=== PATIENT | male | born 1955 | race African-American/Black ===

== ENCOUNTER 2018-04-25 12:40 | Observation (INO) | payer BC ==
--- OUTSIDE RECORDS SUMMARY | 2018-04-25 13:00 | XMS REPORT ---
:1955 External Reference #:[id number] Author Organization [facility] Address [address] [place] [address] Phone [phone] Care Team Providers Name Role Phone Bill Elizabeth MD Primary Care Physician Unavailable Payers Type Date Identification Numbers Payment Provider Subscriber Commercial Policy Number: [id number] [employer] Dani Burris PayID: [id number] [address] [address] [place] [address] Problems Description No Information Family History Date Family Member(s) Problem(s) Comments General Heart Disease General Arthritis Social History Type Date Description Comments ETOH Use Denies alcohol use Smoking Patient has never smoked Exercise Type/Frequency Exercises rarely Allergies, Adverse Reactions, Alerts Date Description Reaction Status Severity Comments 04/12/2018 NKDA active Medications Medication Date Status Form Strength Qnty SIG Indications Ordering Provider Meloxicam Active Tablets 15mg 1 by Unknown 00 mouth every day Multi For Him Active Tablets daily Unknown 50+ 00 Glucosamine Active Capsules 500mg Unknown 00 Vitamin B Active Tablets 1 by Unknown Complex 00 mouth every day Hydrocodone-Javier Active Tablets 5-325mg 1 or 2 Unknown taminophen 00 tabs by mouth every 6-8 hours as needed for pain Vital Signs Date Vital Result Comment 04/12/2018 Height 74 inches 6'2" Weight 163.00 lb Heart Rate 52 /min BP Systolic Sitting 112 mmHg BP Diastolic Sitting 60 mmHg Respiratory Rate 14 /min Pain Level 3 BMI (Body Mass Index) 20.9 kg/m2 Results Description No Information Procedures Description No Information Plan of Care No Information Available
[2018-04-25] MEDS ORDERED: NS 0.9% 1000 ML* 2,000 ML IV ONE (13:30)
[2018-04-25 13:58] LABS: ABS Basophils 0 10^3/ul (0-0.2); ABS Eosinophils 0.2 10^3/ul (0-0.6); ABS Monocytes 0.4 10^3/ul (0-0.8); ABS Neutrophils 2.9 10^3/ul (1.5-7.7); ABS Nucleated RBC 0 10^3/ul; Eosinophil % 3.8 % (0-6); Hematocrit 43 % (42-52); Hemoglobin 14.6 g/dl (14.0-18.0); Lymphocyte % 22.6 % (25-47); Mean Corpuscular HGB Conc 34 g/dl (31-36); Mean Corpuscular Hemoglobin 30 pg (27-31); Mean Corpuscular Volume 89 fL (80-94); Mean Platelet Volume 10.1 um3 (7.4-10.4); Nucleated Red Blood Cells % 0.1; Platelet Count 210 10^3/ul (150-450); Red Blood Count 4.84 10^6/ul (4.00-5.40); Red Cell Distribution Width 15 % (10.5-15); White Blood Count 4.6 10^3/ul (3.5-10.8)
[2018-04-25 14:06] LABS: INR 0.92 (0.77-1.02)
[2018-04-25 14:20] LABS: EGFR Non-African American 116.2 (>60)
--- NOTE | 2018-04-25 14:26 | RAD ---
HISTORY: TACHYCARDIA/SOB COMPARISONS: July 24, 2017 VIEWS: 1: frontal portable view of the chest at 2:12 PM FINDINGS: LINES AND TUBES: None. CARDIOMEDIASTINAL SILHOUETTE: The cardiomediastinal silhouette is normal for portable technique. PLEURA: The costophrenic angles are sharp. No pleural abnormalities are noted. LUNG PARENCHYMA: The lungs are clear. ABDOMEN: The upper abdomen is clear. There is no subphrenic gas. BONES AND SOFT TISSUES: No bone or soft tissue abnormalities are noted. IMPRESSION: NO ACTIVE CARDIOPULMONARY DISEASE.
[2018-04-25] MEDS ORDERED: Digoxin IV* 0.5 MG/2 ML AMP (0.25 MG/ML) IV SLOW PU ONE (15:38)
[2018-04-25 15:57] LABS: Urine Appearance Cloudy; Urine Blood Negative (Negative); Urine Ketones Negative (Negative); Urine Protein Negative (Negative); Urine Specific Gravity 1.015 (1.010-1.030); Urine Urobilinogen Negative (Negative)
[2018-04-25] MEDS ORDERED: Apixaban* 5 MG TAB PO ONE (16:28)
[2018-04-25] MEDS ORDERED: Ondansetron 40 MG VIAL* 2 MG/ML 20 ML VIAL IV PRN (16:36)
[2018-04-25] MEDS ORDERED: Acetaminophen TAB* 325 MG PO PRN (16:36)
[2018-04-25] MEDS ORDERED: NS 0.9% 1000 ML* 1,000 ML IV SCH (16:45)
--- NOTE | 2018-04-25 18:37 | ED ---
Jaquelin Bryant Jade, scribed for Sigifredo Ferro MD on 04/25/18 at 1329 . HPI Cardiac - HPI Summary HPI Summary: Pt is a 62 y/o male who presents to the ED c/o irregular heartbeat since 7:00. He states the dysrhythmia began a year ago, and has increased in frequency from about once every two months to now once per week. Each episode lasts about 1-2 days. Pt feels weak, unsteady, and lightheaded, but denies any CP. Pt is currently not on medications for his irregular heartbeat, and it is undiagnosed. He states physical activity makes the dysrhythmia worse. FHx cardiac disease. - History of Current Complaint Chief Complaint: EDDysrhythmPalp Stated Complaint: IRREGULAR HEATBEAT Time Seen by Provider: 04/25/18 13:09 Hx Obtained From: Patient Onset/Duration: Started Hours Ago - 7:00 - today's episode, Started Weeks Ago - 1 year ago - dysrhythmia began, Still Present Timing: Intermittent - Increasing frequency from once every two months to now once a week, Lasting Days - 1-2 days at a time Current Severity: None Pain Intensity: 0 Pain Scale Used: 0-10 Numeric Character: Irregular Aggravating Factor(s): Exertion Associated Signs and Symptoms: Positive: Weakness, Lightheadedness, Other: - Unsteady - Allergy/Home Medications Allergies/Adverse Reactions: Allergies Allergy/AdvReac Type Severity Reaction Status Date / Time No Known Allergies Allergy Verified 04/25/18 12:47 Home Medications: Home Medications Meloxicam(NF) [Mobic(NF)] 15 mg PO DAILY 04/25/18 [History Confirmed 04/25/18] Multivitamins/Minerals TAB* [Theragran/minerals TAB*] 1 tab PO DAILY 04/25/18 [ History Confirmed 04/25/18] PMH/Surg Hx/FS Hx/Imm Hx Endocrine/Hematology History: Denies: Hx Diabetes Cardiovascular History: Reports: Other Cardiovascular Problems/Disorders - Undiagnosed irregular rhythm Denies: Hx Congestive Heart Failure Infectious Disease History: No Infectious Disease History: Denies: Traveled Outside the [place] in Last 30 Days - Family History Known Family History: Positive: Cardiac Disease - Social History Alcohol Use: Occasionally Substance Use Type: Reports: None Smoking Status (MU): Never Smoked Tobacco Review of Systems Positive: Other - Irregular rhythm. Negative: Chest Pain Neurological: Other - Lightheaded, unsteady Positive: Weakness All Other Systems Reviewed And Are Negative: Yes Physical Exam - Summary Physical Exam Summary: General: well-appearing, no pain distress Skin: warm, color reflects adequate perfusion, dry Head: normal Eyes: EOMI, KOLBY ENT: normal Neck: supple, nontender Respiratory: CTA, breath sounds present Cardiovascular: Tachycardic. Irregularly irregular rhythm. Abdomen: soft, nontender Bowel: present Musculoskeletal: normal, strength/ROM intact Neurological: sensory/motor intact, A&O x3 Psychological: affect/mood appropriate Triage Information Reviewed: Yes Vital Signs On Initial Exam: Initial Vitals Temp Pulse Resp BP Pulse Ox 98.8 F 44 18 116/75 96 04/25/18 12:42 04/25/18 12:42 04/25/18 12:42 04/25/18 12:42 04/25/18 12:42 Vital Signs Reviewed: Yes Diagnostics - Vital Signs Vital Signs Temp Pulse Resp BP Pulse Ox 04/25/18 12:42 98.8 F 44 18 116/75 96 - Laboratory Lab Results: Lab Results 04/25/18 04/25/18 04/25/18 Range/Units 13:51 13:51 13:51 WBC 4.6 (3.5-10.8) 10^3/ul RBC 4.84 (4.00-5.40) 10^6/ul Hgb 14.6 (14.0-18.0) g/dl Hct 43 (42-52) % MCV 89 (80-94) fL MCH 30 (27-31) pg MCHC 34 (31-36) g/dl RDW 15 (10.5-15) % Plt Count 210 (150-450) 10^3/ul MPV 10.1 (7.4-10.4) um3 Neut % (Auto) 64.2 (38-83) % Lymph % (Auto) 22.6 L (25-47) % [place] % (Auto) 8.7 H (0-7) % Eos % (Auto) 3.8 (0-6) % Baso % (Auto) 0.7 (0-2) % Absolute Neuts (auto) 2.9 (1.5-7.7) 10^3/ul Absolute Lymphs (auto) 1.0 (1.0-4.8) 10^3/ul Absolute Monos (auto) 0.4 (0-0.8) 10^3/ul Absolute Eos (auto) 0.2 (0-0.6) 10^3/ul Absolute Basos (auto) 0 (0-0.2) 10^3/ul Absolute Nucleated RBC 0 10^3/ul Nucleated RBC % 0.1 INR (Anticoag Therapy) 0.92 (0.77-1.02) APTT 27.6 (26.0-36.3) seconds D-Dimer, Quantitative < 200 (Less Than 230) ng/mL Sodium 140 (135-145) mmol/L Potassium 4.2 (3.5-5.0) mmol/L Chloride 108 (101-111) mmol/L Carbon Dioxide 24 (22-32) mmol/L Anion Gap 8 (2-11) mmol/L BUN 28 H (6-24) mg/dL Creatinine 0.69 (0.67-1.17) mg/dL Est GFR ( Amer) 149.4 (>60) Est GFR (Non-Af Amer) 116.2 (>60) BUN/Creatinine Ratio 40.6 H (8-20) Glucose 107 H (70-100) mg/dL Lactic Acid (0.5-2.0) mmol/L Calcium 9.3 (8.6-10.3) mg/dL Magnesium 2.0 (1.9-2.7) mg/dL Total Bilirubin 1.20 H (0.2-1.0) mg/dL AST 20 (13-39) U/L ALT 33 (7-52) U/L Alkaline Phosphatase 46 (34-104) U/L Total Creatine Kinase 96 (10-223) U/L CK-MB (CK-2) 2.9 (0.6-6.3) ng/mL Troponin I 0.00 (<0.04) ng/mL C-Reactive Protein < 1.00 (< 5.00) mg/L B-Natriuretic Peptide ( - 100) pg/mL Total Protein 6.2 L (6.4-8.9) g/dL Albumin 4.1 (3.2-5.2) g/dL Globulin 2.1 (2-4) g/dL Albumin/Globulin Ratio 2.0 (1-3) Lipase 34 (11.0-82.0) U/L TSH 0.78 (0.34-5.60) mcIU/mL Urine Color Urine Appearance Urine pH (5-9) Ur Specific [place] (1.010-1.030) Urine Protein (Negative) Urine Ketones (Negative) Urine Blood (Negative) Urine Nitrate (Negative) Urine Bilirubin (Negative) Urine Urobilinogen (Negative) Ur Leukocyte Esterase (Negative) Urine Glucose (Negative) Urine Ascorbic Acid (Negative) 04/25/18 04/25/18 04/25/18 Range/Units 13:51 13:51 15:33 WBC (3.5-10.8) 10^3/ul RBC (4.00-5.40) 10^6/ul Hgb (14.0-18.0) g/dl Hct (42-52) % MCV (80-94) fL MCH (27-31) pg MCHC (31-36) g/dl RDW (10.5-15) % Plt Count (150-450) 10^3/ul MPV (7.4-10.4) um3 Neut % (Auto) (38-83) % Lymph % (Auto) (25-47) % [place] % (Auto) (0-7) % Eos % (Auto) (0-6) % Baso % (Auto) (0-2) % Absolute Neuts (auto) (1.5-7.7) 10^3/ul Absolute Lymphs (auto) (1.0-4.8) 10^3/ul Absolute Monos (auto) (0-0.8) 10^3/ul Absolute Eos (auto) (0-0.6) 10^3/ul Absolute Basos (auto) (0-0.2) 10^3/ul Absolute Nucleated RBC 10^3/ul Nucleated RBC % INR (Anticoag Therapy) (0.77-1.02) APTT (26.0-36.3) seconds D-Dimer, Quantitative (Less Than 230) ng/mL Sodium (135-145) mmol/L Potassium (3.5-5.0) mmol/L Chloride (101-111) mmol/L Carbon Dioxide (22-32) mmol/L Anion Gap (2-11) mmol/L BUN (6-24) mg/dL Creatinine (0.67-1.17) mg/dL Est GFR ( Amer) (>60) Est GFR (Non-Af Amer) (>60) BUN/Creatinine Ratio (8-20) Glucose (70-100) mg/dL Lactic Acid 0.8 (0.5-2.0) mmol/L Calcium (8.6-10.3) mg/dL Magnesium (1.9-2.7) mg/dL Total Bilirubin (0.2-1.0) mg/dL AST (13-39) U/L ALT (7-52) U/L Alkaline Phosphatase (34-104) U/L Total Creatine Kinase (10-223) U/L CK-MB (CK-2) (0.6-6.3) ng/mL Troponin I (<0.04) ng/mL C-Reactive Protein (< 5.00) mg/L B-Natriuretic Peptide 157 H ( - 100) pg/mL Total Protein (6.4-8.9) g/dL Albumin (3.2-5.2) g/dL Globulin (2-4) g/dL Albumin/Globulin Ratio (1-3) Lipase (11.0-82.0) U/L TSH (0.34-5.60) mcIU/mL Urine Color Green A Urine Appearance Cloudy Urine pH 6.0 (5-9) Ur Specific [place] 1.015 (1.010-1.030) Urine Protein Negative (Negative) Urine Ketones Negative (Negative) Urine Blood Negative (Negative) Urine Nitrate Negative (Negative) Urine Bilirubin Negative (Negative) Urine Urobilinogen Negative (Negative) Ur Leukocyte Esterase Negative (Negative) Urine Glucose Negative (Negative) Urine Ascorbic Acid * A (Negative) Result Diagrams: 04/25/18 13:51 04/25/18 13:51 Lab Statement: Any lab studies that have been ordered have been reviewed, and results considered in the medical decision making process. - Radiology CXR Xray Interpretation: No Acute Changes - NO ACTIVE CARDIOPULMONARY DISEASE. ED physician reviewed radiology report. Radiology Interpretation Completed By: Radiologist - EKG 12:41 Cardiac Rate: Tachycardia - 118 bpm EKG Rhythm: Atrial Fibrillation - Rapid at 118 bpm EKG Interpretation: Minimal ST depression in inferior leads Re-Evaluation - Re-Evaluation 15:42 Re-Evaluation Time: 15:42 Comment: Discussed admission to cardiology (Dr. Oropeza). Disposition - Course Course Of Treatment: DISCUSSED WITH CARDIOLOGY, DR OROPEZA. ADMIT HOSPITALIST. - Diagnoses Provider Diagnoses: Rapid atrial fibrillation Discharge - Sign-Out/Discharge Documenting (check all that apply): Discharge/Admit/Transfer - Admit Signing out patient TO: Oleg Oropeza - Discharge Plan Condition: Stable Disposition: ADMITTED TO [facility] - Billing Disposition and Condition Condition: STABLE Disposition: Admitted to [facility] The documentation as recorded by the Jaquelin burrows Jade accurately reflects the service I personally performed and the decisions made by me, Sigifredo Ferro MD.
--- NOTE | 2018-04-25 20:01 | RAD ---
HISTORY: Swollen Testicle, ? Varicocele, only 1 testicle. COMPARISONS: None TECHNIQUE: Multiple transverse and longitudinal ultrasound images were obtained of the scrotum, using grayscale, color Doppler, and spectral Doppler imaging. FINDINGS: RIGHT: RIGHT TESTICLE: The right testicle is not identified. RIGHT SCROTUM: There is no hydrocele or varicocele. There are multiple minimally complicated cysts within the right hemiscrotum. The largest measures 7.1 cm in maximum dimension. LEFT: LEFT TESTICLE: The left testicle measures 6.1 x 3.4 x 4 cm. The left testicle is homogeneous in echotexture, without testicular parenchymal mass. Normal arterial and venous waveforms are identified within the left testicle on spectral Doppler imaging. LEFT EPIDIDYMIS: The left epididymis measures 1.1 cm at the head. LEFT SCROTUM: There is no hydrocele or varicocele. OTHER: None IMPRESSION: 1. NO LEFT TESTICULAR MASS. NO SONOGRAPHIC FEATURES OF LEFT TESTICULAR TORSION. PLEASE NOTE THAT PARTIAL OR INTERMITTENT TORSION MAY BE SONOGRAPHICALLY NORMAL. 2. THE RIGHT TESTICLE IS ABSENT. THERE ARE MULTIPLE MINIMALLY COMPLICATED CYSTS WITHIN THE RIGHT HEMISCROTUM WHICH MAY REPRESENT LOCULATED HYDROCELES VERSUS SPERMATOCELES.
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
[2018-04-25] MEDS ORDERED: Apixaban* 2.5 MG TAB PO SCH (21:00)
[2018-04-25] MEDS ORDERED: Apixaban* 5 MG TAB PO SCH (21:00)
[2018-04-25] MEDS ORDERED: NS 0.9% 1000 ML* 1,000 ML IV ONE (23:58)
[2018-04-26 04:45] LABS: ABS Basophils 0 10^3/ul (0-0.2); ABS Eosinophils 0.2 10^3/ul (0-0.6); ABS Lymphocytes 1.1 10^3/ul (1.0-4.8); ABS Monocytes 0.3 10^3/ul (0-0.8); ABS Neutrophils 1.6 10^3/ul (1.5-7.7); ABS Nucleated RBC 0 10^3/ul; Eosinophil % 5.2 % (0-6); Hematocrit 40 % (42-52); Hemoglobin 13.7 g/dl (14.0-18.0); Lymphocyte % 32.8 % (25-47); Mean Corpuscular HGB Conc 34 g/dl (31-36); Mean Corpuscular Hemoglobin 30 pg (27-31); Mean Corpuscular Volume 89 fL (80-94); Mean Platelet Volume 10.2 um3 (7.4-10.4); Nucleated Red Blood Cells % 0.1; Platelet Count 187 10^3/ul (150-450); Red Blood Count 4.53 10^6/ul (4.00-5.40); Red Cell Distribution Width 15 % (10.5-15); White Blood Count 3.2 10^3/ul (3.5-10.8)
[2018-04-26 05:01] LABS: EGFR Non-African American 122.3 (>60)
[2018-04-26] MEDS ORDERED: Gadoteridol* (CONTRAST) 279.3 MG/ML 10 ML IV ONE (08:02)
--- NOTE | 2018-04-26 08:24 | RAD ---
HISTORY: Lateral Diplopia COMPARISONS: Head CT dated March 19, 2016 TECHNIQUE: The following sequences were obtained of the head: Sagittal T1-weighted images, axial T2-weighted images, axial FLAIR images, axial susceptibility weighted images, axial T1-weighted images. Additionally, axial diffusion-weighted images were obtained with calculated apparent diffusion coefficients. Additionally, sagittal, coronal, and axial T1-weighted images were obtained after contrast enhancement with a gadolinium-based intravenous contrast agent. FINDINGS: HEMORRHAGE/INFARCT: There is no hemorrhage or acute infarct. MASSES/SHIFT: There is no mass or shift. EXTRA-AXIAL SPACES/MENINGES: There are no extra-axial fluid collections. SULCI AND VENTRICLES: The sulci and ventricles are normal in size and position for the patient's stated age. CEREBRUM: There are no focal parenchymal abnormalities. 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 BRAINSTEM: There are no focal parenchymal abnormalities. There is no appreciable abnormal enhancement of the visualized cisternal portions of the cranial nerves. CEREBELLUM: There are no focal parenchymal abnormalities. The cerebellar tonsils are normal in size and position. SELLA: The sella is normal. PINEAL: The pineal region is clear. CP ANGLE/TEMPORAL BONES: The labyrinthine structures are grossly normal. VESSELS: Normal flow-voids are noted within the visualized vertebral vasculature. DIFFUSION ABNORMALITIES: There are no diffusion abnormalities. PARANASAL SINUSES/MASTOIDS: The paranasal sinuses are clear. ORBITS: The orbits are unremarkable. BONES AND SOFT TISSUE: No bone or soft tissue abnormalities are noted. OTHER: There is no other abnormal enhancement. IMPRESSION: UNREMARKABLE MRI OF THE BRAIN. THERE IS NO RESTRICTED DIFFUSION TO SUGGEST ACUTE INFARCT. THERE IS NO SPACE-OCCUPYING LESION.
[2018-04-26] MEDS: Multivitamins/Minerals TAB PO SCH (08:43)
[2018-04-26] MEDS ORDERED: Apixaban* 2.5 MG TAB PO SCH (09:00)
[2018-04-26] MEDS: Metoprolol Tartrate TAB* 25 MG PO SCH ×2 (10:18→21:30)
[2018-04-26] MEDS ORDERED: Flumazenil* 0.1 MG/ML 5 ML MDV ONE (11:28)
[2018-04-26] MEDS ORDERED: fentaNYL* 50 MCG/ML 2 ML VIAL (100 MCG VIAL) ONE (11:28)
[2018-04-26] MEDS ORDERED: Naloxone* 0.4 MG/ML 1 ML VIAL ONE (11:28)
[2018-04-26] MEDS ORDERED: Lidocaine 2% VISCOUS* 15 ML UDC ONE ×2 (11:28→11:30)
[2018-04-26] MEDS ORDERED: Midazolam* 1 MG/ML 10 ML VIAL (10 MG) ONE ×2 (11:30→12:19)
--- NOTE | 2018-04-26 11:37 | CONS ---
CC: Dr. Elizabeth, [facility] CARDIOLOGY CONSULTATION NOTE: DATE OF CONSULT: 04/26/18 INDICATION FOR CONSULTATION: Atrial fibrillation. HISTORY OF PRESENT ILLNESS: The patient is a 62-year-old gentleman without significant past medical history. He is being evaluated for possible Lyme arthritis, but in general does not have any chronic medical problems. The patient stated over the last year or so, he has noted irregular heartbeats. At the start of this, it was perhaps once a month and is becoming more and more frequent. When it do es occur, it lasts 24 to 36 hours and then he is aware that he is back in the normal rhythm. When he is in atrial fibrillation, he has a little bit less energy. He denies any chest pain. He denies any lightheadedness, dizziness, or syncope. In general, the patient is a very active individual. He rides dirt bikes and mountain bikes. PAST MEDICAL HISTORY: Unremarkable except for multiple traumas, inflammatory arthritis. MEDICATIONS: Outpatient medications: 1. Meloxicam 15 mg a day. 2. Glucosamine and chondroitin. 3. Multivitamin a day. ALLERGIES: No known drug allergies. FAMILY HISTORY: Mother is alive and healthy. Father has a pacemaker and heart disease, he is [facility]. SOCIAL HISTORY: The patient denies alcohol use. He had been a heavy alcohol user in the [facility]. He does use occasional marijuana. No cigarette smoking. He is . He works as an electri ilana. One of his daughters is in the medical field. PHYSICAL EXAM: Height is 6 feet 1 inch, weight is 156 pounds. Temperature 97.8, heart rate is 55, b lood pressure 99/77, respiratory rate is 16, oxygen saturation 99% on room air. Sclerae anicteric. Oropharynx is pink without erythema. Carotids are 2+ without bruits. JVD is normal. Thyroid is norm al. Cardiac Exam: S1, S2 without any murmurs, rubs, or gallops. PMI is normal. Lungs are clear to auscultation bilaterally. There is no dullness to percussion. Abdomen is soft, nontender, nondisten ded with normoactive bowel sounds. Extremities show no edema. He has 2+ pulses throughout. The josiane ent is awake, alert, and oriented. He moves all 4 extremities equally. DIAGNOSTIC STUDIES/LAB DATA: CBC within normal limits. Chemistries within normal limits. TSH 0.78. Troponin 0.00. BNP 157. EKG shows atrial fibrillation. IMPRESSION: This is a 62-year-old gentleman with a history of paroxysmal painful palpitations. He w as admitted to the hospital because of atrial fibrillation. In general, he does not have any signifi cant symptoms. I spent approximately 40 minutes with the patient describing atrial fibrillation, the risks and benef its and treatment such as cardioversion and antiarrhythmic medications and anticoagulants. All his q uestions were answered. At this point, the patient wants to proceed with transesophageal echocardiogram and cardioversion. T his will be set up today. The patient was started on beta- blockers. He will be maintained on Eliqu is. Further recommendations pending the results of his cardioversion. The patient will likely be di scharged from the hospital on flecainide 50 mg b.i.d. for suppression of atrial fibrillation. [id number]/[facility] #: [id number]
--- NOTE | 2018-04-26 12:51 | TEE ---
Patient: VLADIMIR BARROSO [facility] Rec#: [id number] : 1955 Date: 04/26/2018 Age: 62y Height: 185 cm / 72.8 in Weight: 71 kg / 156.5 lbs Sex: M BSA: 1.94 Room#: 432 Admit Date#: 04/25/2018 Type: Inpatient Referring: Mike Juarez MD Performing: Mike Juarez MD Reading: Mike Juarez MD Transport Conductor: Pia Leigh RD,RDMS Nurse: Kiesha Snow Transesophageal Echocardiogram Indication: AFIB BP: 107/72 HR: 91 Rhythm: A-Fib Findings History: Presyncope, dizziness Technical Comments: The study quality is good. Left Ventricle: The left ventricular chamber size is normal. Mild concentric left ventricular hypertrophy is observed. Global left ventricular wall motion and contractility are within normal limits. Left ventricular systolic function is at the lower limits of normal. The estimated ejection fraction is 50-55%. The assessment of diastolic function is non-diagnostic. Left Atrium: The left atrium is mildly dilated. There is no thrombus visualized in the left atrial appendage. Right Ventricle: The right ventricular chamber size and systolic function are within normal limits. Right Atrium: The right atrium is mildly dilated. The bubble study is negative. A patent foramen ovale is not demonstrated with color Doppler and agitated contrast. Aortic Valve: The aortic valve is trileaflet. There is no evidence of aortic valve thickening. Systolic excursion of the aortic valve is normal. There is a trace of aortic regurgitation. There is no evidence of aortic stenosis. Mitral Valve: The mitral valve leaflets do not appear thickened. There is mild mitral regurgitation. There is no evidence of mitral stenosis. Tricuspid Valve: The tricuspid valve leaflets are normal. There is trace tricuspid regurgitation. Unable to estimate the right ventricular systolic pressure. Pulmonic Valve: The pulmonic valve appears normal. There is a trace pulmonic regurgitation. Pericardium: There is no significant pericardial effusion. Aorta: There is borderline dilatation of the ascending aorta. There is mild dilatation of the aortic root. Pulmonary Artery: The main pulmonary artery appears normal. Venous: The inferior vena cava is not visualized. The flow pattern of the pulmonary veins appear normal. The superior vena cava appears normal. VJ Procedures: All standard views were attempted within the limitations of patient tolerance and safety. History and physical as well as labs were reviewed. The patient was in a fasting state. Risks and benefits of the procedure, including alternatives, were discussed and written informed consent was obtained. The patient and/or their health care hardware supplies sales representative expressed understanding of the procedure, risks and benefits. Baseline and continuous monitoring of blood pressure, heart rate, pulse oximetry and heart rhythm was performed throughout the procedure. The appropriate time-out procedure was performed as per [facility] protocol. The patient was placed in the left lateral decubitus position. The patient's posterior pharynx was anesthetized with 20ml of 2% viscous lidocaine. The patient received IV Midazolam with a total dose of 9 mg. The patient received IV Fentanyl with a total dose of 50 mcg. An oral bite block was inserted for protection of oral dentition. The multiplane transesophageal echocardiogram probe was inserted through the posterior oropharynx and advanced into the esophagus without difficulty. Multiple 2D images were obtained of the heart and its related structures. Color flow Doppler was used for evaluation. Spectral Doppler was also used. The atrial septum was interrogated with color flow Doppler. At the conclusion of the procedure the probe was removed with continuous suction without complications. The patient tolerated the procedure with no apparent complications. Contrast: Intravenous agitated saline contrast was used to assess intracardiac shunting. Conclusions Mild concentric left ventricular hypertrophy is observed. Global left ventricular wall motion and contractility are within normal limits. Left ventricular systolic function is at the lower limits of normal. The estimated ejection fraction is 50-55%. There is no thrombus visualized in the left atrial appendage. The right ventricular chamber size and systolic function are within normal limits. A patent foramen ovale is not demonstrated with color Doppler and agitated contrast. There is no evidence of aortic stenosis. There is a trace of aortic regurgitation. There is mild mitral regurgitation. There is trace tricuspid regurgitation. Unable to estimate the right ventricular systolic pressure. There is no significant pericardial effusion.
[2018-04-26] MEDS: NS 0.9% 1000 ML* 1,000 ML IV SCH ×2 (14:54→23:29)
[2018-04-26] MEDS ORDERED: Digoxin TAB* 0.125 MG PO SCH (17:00)
--- NOTE | 2018-04-26 18:14 | PN ---
Subjective Date of Service: 04/26/18 Interval History: Patient seen and examined earlier today. Had his cardioversion done this afternoon. Denies chest pain or palpitations. Family History: Unchanged from Admission Social History: Unchanged from Admission Past Medical History: Unchanged from Admission Objective Active Medications: Acetaminophen (Tylenol Tab*) 650 mg PO Q6H PRN PRN Reason: FEVER/PAIN Apixaban (Eliquis*) 5 mg PO BID [facility] Flecainide Acetate (Tambocor Tab*) 50 mg PO BID [facility] Sodium Chloride (Ns 0.9% 1000 Ml*) 1,000 mls @ 125 mls/hr IV .PER RATE [facility] Last Admin: 04/26/18 14:54 Dose: 125 mls/hr Metoprolol Tartrate (Lopressor Tab*) 25 mg PO BID [facility] Last Admin: 04/26/18 10:18 Dose: 25 mg Multivitamins/Minerals (Theragran/Minerals Tab*) 1 tab PO DAILY [facility] Last Admin: 04/26/18 08:43 Dose: Not Given Vital Signs - 8 hr 04/26/18 04/26/18 04/26/18 10:11 11:13 13:52 Temperature 97.8 F 97.4 F Pulse Rate 45 38 Respiratory 16 16 Rate Blood Pressure 107/72 95/75 85/57 (mmHg) O2 Sat by Pulse 100 100 Oximetry 04/26/18 04/26/18 14:56 16:01 Temperature 97.1 F 98.4 F Pulse Rate 50 40 Respiratory 20 Rate Blood Pressure 80/58 84/56 (mmHg) O2 Sat by Pulse 99 99 Oximetry Oxygen Devices in Use Now: None Appearance: Comfortable in bed, in NAD Eyes: No Scleral Icterus, PERRLA Ears/Nose/Mouth/Throat: Clear Oropharnyx, Mucous Membranes Moist Neck: NL Appearance and Movements; NL JVP, Trachea Midline Respiratory: Symmetrical Chest Expansion and Respiratory Effort, Clear to Auscultation Cardiovascular: NL Sounds; No Murmurs; No JVD, RRR Abdominal: NL Sounds; No Tenderness; No Distention Extremities: No Edema Skin: No Rash or Ulcers Neurological: Alert and Oriented x 3, NL Sensation, NL Muscle Strength and Tone Nutrition: Taking PO's Result Diagrams: 04/26/18 04:11 04/26/18 04:11 Additional Lab and Data: Lab Results 06/04/25/18 04/25/18 Range/Units 13:51 13:51 13:51 WBC 4.6 (3.5-10.8) 10^3/ul RBC 4.84 (4.00-5.40) 10^6/ul Hgb 14.6 (14.0-18.0) g/dl Hct 43 (42-52) % MCV 89 (80-94) fL MCH 30 (27-31) pg MCHC 34 (31-36) g/dl RDW 15 (10.5-15) % Plt Count 210 (150-450) 10^3/ul MPV 10.1 (7.4-10.4) um3 Neut % (Auto) 64.2 (38-83) % Lymph % (Auto) 22.6 L (25-47) % Quay % (Auto) 8.7 H (0-7) % Eos % (Auto) 3.8 (0-6) % Baso % (Auto) 0.7 (0-2) % Absolute Neuts (auto) 2.9 (1.5-7.7) 10^3/ul Absolute Lymphs (auto) 1.0 (1.0-4.8) 10^3/ul Absolute Monos (auto) 0.4 (0-0.8) 10^3/ul Absolute Eos (auto) 0.2 (0-0.6) 10^3/ul Absolute Basos (auto) 0 (0-0.2) 10^3/ul Absolute Nucleated RBC 0 10^3/ul Nucleated RBC % 0.1 INR (Anticoag Therapy) 0.92 (0.77-1.02) APTT 27.6 (26.0-36.3) seconds D-Dimer, Quantitative < 200 (Less Than 230) ng/mL Sodium 140 (135-145) mmol/L Potassium 4.2 (3.5-5.0) mmol/L Chloride 108 (101-111) mmol/L Carbon Dioxide 24 (22-32) mmol/L Anion Gap 8 (2-11) mmol/L BUN 28 H (6-24) mg/dL Creatinine 0.69 (0.67-1.17) mg/dL Est GFR ( Amer) 149.4 (>60) Est GFR (Non-Af Amer) 116.2 (>60) BUN/Creatinine Ratio 40.6 H (8-20) Glucose 107 H (70-100) mg/dL Lactic Acid (0.5-2.0) mmol/L Calcium 9.3 (8.6-10.3) mg/dL Magnesium 2.0 (1.9-2.7) mg/dL Total Bilirubin 1.20 H (0.2-1.0) mg/dL AST 20 (13-39) U/L ALT 33 (7-52) U/L Alkaline Phosphatase 46 (34-104) U/L Total Creatine Kinase 96 (10-223) U/L CK-MB (CK-2) 2.9 (0.6-6.3) ng/mL Troponin I 0.00 (<0.04) ng/mL C-Reactive Protein < 1.00 (< 5.00) mg/L B-Natriuretic Peptide ( - 100) pg/mL Total Protein 6.2 L (6.4-8.9) g/dL Albumin 4.1 (3.2-5.2) g/dL Globulin 2.1 (2-4) g/dL Albumin/Globulin Ratio 2.0 (1-3) Lipase 34 (11.0-82.0) U/L TSH 0.78 (0.34-5.60) mcIU/mL Urine Color Urine Appearance Urine pH (5-9) Ur Specific [place] (1.010-1.030) Urine Protein (Negative) Urine Ketones (Negative) Urine Blood (Negative) Urine Nitrate (Negative) Urine Bilirubin (Negative) Urine Urobilinogen (Negative) Ur Leukocyte Esterase (Negative) Urine Glucose (Negative) Urine Ascorbic Acid (Negative) 04/25/18 04/25/18 04/25/18 Range/Units 13:51 13:51 15:33 WBC (3.5-10.8) 10^3/ul RBC (4.00-5.40) 10^6/ul Hgb (14.0-18.0) g/dl Hct (42-52) % MCV (80-94) fL MCH (27-31) pg MCHC (31-36) g/dl RDW (10.5-15) % Plt Count (150-450) 10^3/ul MPV (7.4-10.4) um3 Neut % (Auto) (38-83) % Lymph % (Auto) (25-47) % Quay % (Auto) (0-7) % Eos % (Auto) (0-6) % Baso % (Auto) (0-2) % Absolute Neuts (auto) (1.5-7.7) 10^3/ul Absolute Lymphs (auto) (1.0-4.8) 10^3/ul Absolute Monos (auto) (0-0.8) 10^3/ul Absolute Eos (auto) (0-0.6) 10^3/ul Absolute Basos (auto) (0-0.2) 10^3/ul Absolute Nucleated RBC 10^3/ul Nucleated RBC % INR (Anticoag Therapy) (0.77-1.02) APTT (26.0-36.3) seconds D-Dimer, Quantitative (Less Than 230) ng/mL Sodium (135-145) mmol/L Potassium (3.5-5.0) mmol/L Chloride (101-111) mmol/L Carbon Dioxide (22-32) mmol/L Anion Gap (2-11) mmol/L BUN (6-24) mg/dL Creatinine (0.67-1.17) mg/dL Est GFR ( Amer) (>60) Est GFR (Non-Af Amer) (>60) BUN/Creatinine Ratio (8-20) Glucose (70-100) mg/dL Lactic Acid 0.8 (0.5-2.0) mmol/L Calcium (8.6-10.3) mg/dL Magnesium (1.9-2.7) mg/dL Total Bilirubin (0.2-1.0) mg/dL AST (13-39) U/L ALT (7-52) U/L Alkaline Phosphatase (34-104) U/L Total Creatine Kinase (10-223) U/L CK-MB (CK-2) (0.6-6.3) ng/mL Troponin I (<0.04) ng/mL C-Reactive Protein (< 5.00) mg/L B-Natriuretic Peptide 157 H ( - 100) pg/mL Total Protein (6.4-8.9) g/dL Albumin (3.2-5.2) g/dL Globulin (2-4) g/dL Albumin/Globulin Ratio (1-3) Lipase (11.0-82.0) U/L TSH (0.34-5.60) mcIU/mL Urine Color Green A Urine Appearance Cloudy Urine pH 6.0 (5-9) Ur Specific [place] 1.015 (1.010-1.030) Urine Protein Negative (Negative) Urine Ketones Negative (Negative) Urine Blood Negative (Negative) Urine Nitrate Negative (Negative) Urine Bilirubin Negative (Negative) Urine Urobilinogen Negative (Negative) Ur Leukocyte Esterase Negative (Negative) Urine Glucose Negative (Negative) Urine Ascorbic Acid * A (Negative) Assess/Plan/Problems-Billing Assessment: A 62 y/o male presented to ED with irregular hear beat, who was seen by cardiology for consultation and underwent Cardioversion this afternoon, stable. - Patient Problems (1) Atrial fibrillation Current Visit: Yes Status: Acute Comment: - Rate is controlled now, s/p cardioversion. - Occasional asymptomatic bradycardia - No palpitaions or chest pain - Observe tonight in Tele, likely home in AM - Dr. Juarez recommended Metoprolol tartarate 25mg BID, Flecainide 50mg BID and Eliquis upon discharge. (2) Atrial fibrillation status post cardioversion Current Visit: Yes Status: Acute Comment: - continue tele monitoring (3) Testicular swelling Current Visit: Yes Status: Acute Comment: - Ultrasound suggesting possible orchitis - No evidence of torsion - No pain or tenderness on exam (4) DVT prophylaxis Current Visit: Yes Status: Acute Comment: - Started on Eliquis (5) Full code status Current Visit: Yes Status: Acute Status and Disposition: Inpatient. Anticipate discharge to home tomorrow on the above mentioned medications.
[2018-04-26] MEDS: Apixaban* 5 MG TAB PO SCH (21:11)
[2018-04-26] MEDS: Flecainide TAB* 100 MG PO SCH (21:18)
--- NOTE | 2018-04-26 22:28 | CARD ---
CC: Dr. Elizabeth, [facility] * CARDIOVERSION NOTE: DATE OF PROCEDURE: 04/26/18 - ROOM #432 PROCEDURE: Cardioversion. INDICATION: Atrial fibrillation. The patient is a 62-year-old gentleman, who had been having increasing episodes of arrhythmia, consistent with atrial fibrillation. He was having it perhaps once a month and then it increased to every week. He came to the emergency room yesterday morning in atrial fibrillation. The patient had just undergone transesophageal echocardiogram showing normal LV size and systolic function. No significant valvular abnormalities. No evidence of shunting and no evidence of thrombus. Cardioversion was recommended. DESCRIPTION OF PROCEDURE: The patient was given an additional 2 mg of Versed for conscious sedation. The patient was cardioverted with 150 joules of synchronized biphasic energy. The patient converted to sinus bradycardia at 50 beats per minute. The patient tolerated the procedure well with no complications. MEDICATIONS: The patient will be discharged from the hospital on: 1. Eliquis 5 mg b.i.d. 2. Metoprolol tartrate 25 mg b.i.d. 3. Flecainide 50 mg b.i.d. FOLLOWUP: I will see the patient in followup in 2 to 3 weeks. [id number]/[facility] #: [id number] MTDD
[2018-04-27] MEDS: NS 0.9% 1000 ML* 1,000 ML IV SCH (08:29)
[2018-04-27] MEDS: Metoprolol Tartrate TAB* 25 MG PO SCH (08:29)
[2018-04-27] MEDS: Apixaban* 5 MG TAB PO SCH (08:29)
[2018-04-27] MEDS: Multivitamins/Minerals TAB PO SCH (08:29)
[2018-04-27] MEDS: Flecainide TAB* 100 MG PO SCH (08:30)
[2018-04-27] MEDS ORDERED: Apixaban* 2.5 MG TAB PO SCH (09:00)
[2018-04-27 11:24] VITALS: BP 106/69
--- NOTE | 2018-04-29 13:27 | DS ---
CC: Dr. Elizabeth * DISCHARGE SUMMARY: DATE OF ADMISSION: 04/25/18 DATE OF DISCHARGE: 04/27/18 PRIMARY CARE PHYSICIAN: Dr. Bill Elizabeth. ATTENDING FOR THIS ADMISSION: Dr. Isabel Pro.* (DICTATED BY TAB HARRIS NP) MY ATTENDING FOR TODAY: Dr. Haydee Ross. HOSPITAL COURSE: This is a very pleasant 62-year-old male patient who presented to the emergency department on the evening of the with a complaint of some palpitations. The patient states that his only medical condition is inflammatory arthritis, had some traumatic injuries in the past, and initially had tested positive for Lyme sometime ago; however, the patient states that he began having some, what he felt to be, irregular heartbeat. He does wear a Fitbit and it was showing that his heart rate was very variable on his Fitbit. He had some decreased exercise tolerance. He felt weak and dizzy and had a near-syncopal episode. The patient came to the emergency department for evaluation. He was found to be in atrial fibrillation. The patient was seen by Cardiology. His EKG showed AFib with early repolarization, but no acute ST segment elevations. His troponins were negative. The rest of his workup was benign. Again, the patient was seen by Cardiology. He was taken to the lab for cardioversion. He underwent that procedure with Dr. Mike Juarez on the 26 of April. He was successfully cardioverted and started on his discharge medications for rate control and anticoagulation. PAST MEDICAL HISTORY: As stated above. REVIEW OF SYSTEMS: Negative except as noted above. DISCHARGE DIAGNOSES: 1. New-onset atrial fibrillation. 2. Presyncope and dizziness secondary to #1. 3. History of inflammatory arthropathy. DISCHARGE MEDICATIONS: Include: 1. Flecainide 50 mg p.o. 2 times a day. 2. Metoprolol tartrate 25 mg 2 times a day. 3. Pantoprazole 40 mg daily. 4. Meloxicam 15 mg daily. 5. Multivitamin 1 tablet daily. 6. Eliquis 5 mg p.o. b.i.d. Of significant note, the new medication started at discharge were the Eliquis, flecainide, metoprolol, and pantoprazole. PHYSICAL EXAM: Vital Signs: At day of discharge, blood pressure 106/69, heart rate 43, respiratory rate 16, O2 saturation 100% on room air, temperature 97.5. HEENT: The patient is atraumatic, normocephalic. PERRLA with nonicteric sclerae. Oral mucosa is moist. Tongue is midline. Neck is supple, nontender. No JVD noted. No carotid bruit auscultated. Cardiovascular: Rate is bradycardic, rhythm is regular. S1, S2 noted. No murmurs, gallops, or rubs. Lungs are clear bilaterally to auscultation with no wheezing, rhonchi, or rales. Abdomen is soft, nontender, nondistended. Positive bowel sounds in all 4 quadrants. was deferred. Musculoskeletal: There is no clubbing, no cyanosis, no edema. He has +2 distal pulses. Full range of motion. Steady gait. Neurologic: Grossly intact with no focal deficits. Psychiatric: He is cooperative and appropriate. LABORATORY DATA: WBCs 3.2, RBCs 4.53, hemoglobin 13.7, hematocrit 40. Sodium 141, potassium 3.9, chloride 111, CO2 of 26, BUN 17, creatinine 0.66, GFR 122.3 , glucose 90, calcium 8.6. Magnesium 2.0. BNP was 157. Urinalysis was negative. Lyme disease serology was negative. DISCHARGE DISPOSITION: The patient was discharged to home in stable condition. All questions were answered. The patient stated his understanding of his discharge instructions and his new medications. FOLLOWUPS: The patient was instructed to follow up with Dr. Mike Juarez in 2 to 3 weeks and also his primary care provider, Dr. Bill Elizabeth. TAB HARRIS NP [id number]/[facility] #: [id number] VLADISLAV
== END 2018-04-27 13:15 | disposition home or self-care (01) ==
LOC: ED 12:40 → MEDTELE 16:36
PROVIDERS: ADMIT Internal Medicine; ATTEND Internal Medicine
DX: I48.91 Unspecified atrial fibrillation (principal); R53.1 Weakness; R42 Dizziness and giddiness; N50.89 Other specified disorders of the male genital organs; Z79.01 Long term (current) use of anticoagulants; H53.2 Diplopia; Z87.39 Personal history of other diseases of the musculoskeletal system and connective tissue; Z86.010 Personal history of colon polyps; Z87.81 Personal history of (healed) traumatic fracture
CPT/HCPCS: 36415; 70553; 71045; 76870; 80048; 80053; 80162; 81003; 82550; 82553; 83605; 83690; 83735; 83880; 84443; 84484; 85025; 85379; 85610; 85730; 86140; 86618; 92960; 93005; 93312; 93325; 96361; 96374; 99156; 99157; 99284; A9270-GY; A9579; G0378; J1160; J2250; J2310; J3010